=== PATIENT | female | born 1975 | race Caucasian/White ===

== ENCOUNTER 2018-10-24 17:42 | Emergency (ER) | payer OTHER ==
[2018-10-24 17:45] VITALS: BP 129/78; PULSE 71; TEMP 98; BMI 24.2
--- NOTE | 2018-10-24 17:56 | PDOC ---
History of Present Illness - General Chief Complaint: Pain, Acute Stated Complaint: NECK AND UPPER BACK PAIN Time Seen by Provider: 10/24/18 17:55 History Source: Patient Exam Limitations: No Limitations - History of Present Illness Initial Comments: 10/24/18 18:20 Pt is a 43yo F with PMH of cervical ca s/p chemotherapy 2 years ago, herniated disc repair presenting to ED with complaints of posterior headache with neck pain. Pain started yesterday evening. She denies injury or strenuous exercise. She took Advil, felt better. When she woke up this morning, the pain returned and was not getting relieved by Advil. Pain is mostly in the back of the head/ upper neck and goes down the neck to the shoulders bilaterally. Worse with rotating the neck. Assoicated with lightheadedness. She denies fever, chills, recent illnesses, injury, LOC, syncope, dizziness, n/v/d, abdominal pain, urinary symtpoms, weakness, numbness/tingling. LMP 2 years ago PMH: see hpi PSH: lumbar disc repair Meds: none Social: denies Allergies: nkda Past History - Past Medical History Allergies/Adverse Reactions: Allergies Allergy/AdvReac Type Severity Reaction Status Date / Time No Known Allergies Allergy Verified 10/24/18 17:42 Home Medications: Ambulatory Orders Ibuprofen [Advil -] 600 mg PO QID PRN 02/09/15 Anemia: No Asthma: No Cancer: No Cardiac Disorders: No CVA: No COPD: No CHF: No Dementia: No Diabetes: No GI Disorders: No Disorders: No HTN: No Hypercholesterolemia: No Liver Disease: No Seizures: No Thyroid Disease: No - Surgical History Abdominal Surgery: No Appendectomy: No Cardiac Surgery: No Cholecystectomy: No Lung Surgery: No Neurologic Surgery: No Orthopedic Surgery: Yes (Left Carpal Tunnel Release) - Suicide/Smoking/Psychosocial Hx Smoking History: Never smoked Have you smoked in the past 12 months: No Hx Alcohol Use: No Drug/Substance Use Hx: No Substance Use Type: None Hx Substance Use Treatment: No Review of Systems - Review of Systems Constitutional: No: Chills, Fever HEENTM: Yes: See HPI. No: Eye Pain, Blurred Vision, Recent change in vision, Tinnitus Respiratory: No: Cough, Shortness of Breath Cardiac (ROS): Yes: Lightheadedness. No: Chest Pain, Palpitations, Syncope ABD/GI: No: Constipated, Diarrhea, Nausea, Vomiting : No: Burning, Dysuria Musculoskeletal: Yes: See HPI, Neck Pain. No: Back Pain, Joint Pain, Joint Swelling, Muscle Pain, Muscle Weakness, Joint Stiffness Integumentary: No: Symptoms Reported Neurological: Yes: See HPI, Headache. No: Numbness, Paresthesia, Tingling, Tremors, Weakness, Ataxia *Physical Exam - Vital Signs Last Vital Signs Temp Pulse Resp BP Pulse Ox 98.0 F 71 16 129/78 100 10/24/18 17:42 10/24/18 17:42 10/24/18 17:42 10/24/18 17:42 10/24/18 17:42 - Physical Exam General Appearance: Yes: Nourished, Appropriately Dressed. No: Apparent Distress HEENT: positive: EOMI (illicited lightheadedness), YAHIR, TMs Normal, Hearing Grossly Normal. negative: Photophobia Neck: positive: Trachea midline, Supple. negative: Lymphadenopathy (R), Lymphadenopathy (L) Respiratory/Chest: positive: Lungs Clear, Normal Breath Sounds Cardiovascular: positive: Regular Rhythm, Regular Rate, S1, S2. negative: Edema , JVD, Murmur Vascular Pulses: Carotid (R): 2+, Carotid (L): 2+, Dorsalis-Pedis (R): 2+, Doralis-Pedis (L): 2+ Gastrointestinal/Abdominal: positive: Normal Bowel Sounds, Soft. negative: Distended, Guarding, Rebound, Tenderness Musculoskeletal: positive: Other (slight tenderness to palpation of paraspinal cervical muscles R side). negative: CVA Tenderness, Decreased Range of Motion, Vertebral Tenderness Extremity: positive: Normal Capillary Refill, Normal Range of Motion, Pelvis Stable. negative: Swelling, Calf Tenderness Integumentary: positive: Normal Color, Dry, Warm Neurologic: positive: glass inserter II-XII NML intact, Fully Oriented, Alert, Normal Mood/ Affect, Normal Response, Motor Strength 5/5, Finger to Nose. negative: Numbness , Sensory Deficit Moderate Sedation - Procedure Monitoring Vital Signs: Procedure Monitoring Vital Signs Temperature 98.0 F 10/24/18 17:42 Pulse Rate 71 10/24/18 17:42 Respiratory Rate 16 10/24/18 17:42 Blood Pressure 129/78 10/24/18 17:42 O2 Sat by Pulse Oximetry (%) 100 10/24/18 17:42 Medical Decision Making - Medical Decision Making 10/24/18 18:23 Pt is a 43yo F with PMH of cervical ca s/p chemotherapy 2 years ago, herniated disc repair presenting to ED with complaints of posterior headache with neck pain. Pain started yesterday evening. She denies injury or strenuous exercise. She took Advil, felt better. When she woke up this morning, the pain returned and was not getting relieved by Advil. Pain is mostly in the back of the head/ upper neck and goes down the neck to the shoulders bilaterally. Worse with rotating the neck. Assoicated with lightheadedness. She denies fever, chills, recent illnesses, injury, LOC, syncope, dizziness, n/v/d, abdominal pain, urinary symtpoms, weakness, numbness/tingling. LMP 2 years ago Vitals: wnl PE: parevertebral spinal tenderness with neck rotation greater on R side. No vertebral tenderness, lightheadedness illicited with EOM. No focal neurological deficits. Ddx: SAH, mass effect, pseudotumor cerebri, meningitis, fracture, intracranial hemorrhage, vertebral dissection. low suspicion for hemorrhage or dissection given that pt garvin normal vital signs, no focal neurological deficits, no history of injury, is not taking blood thinners. Will defer imaging at this time. -will give IM Toradol and reevaluate. 10/24/18 18:47 Pt states no improvement in pain. Will give Vailum 2mg and reevaluate. Pt signed out to Dr. Gonzalez. If she feels better, she can go home. is driving. *DC/Admit/Observation/Transfer Diagnosis at time of Disposition: Neck pain - Discharge Dispostion Disposition: HOME Condition at time of disposition: Improved Decision to Admit order: No - Referrals - Patient Instructions Printed Discharge Instructions: DI for Neck Pain Additional Instructions: You were seen here today for neck pain. It seems more like a muscle spasm. I suggest that you see your doctor for further management and evaluation of your symptoms. Please come back to the emergency room if neck pain gets worse, headache gets worse, you have changes in vision, you are unable to move your neck or head, you lose consciousness, you develop fever or if any new concerning symptom develops. Thank you - Post Discharge Activity
--- NOTE | 2018-10-24 18:01 | PDOC ---
Attending Attestation - HPI HPI: 10/24/18 18:23 The patient is a 43 year old female with a significant past medical history of cervical cancer here today for evaluation of neck pain. The patient reports that her neck pain began last night and has been getting worse, is most prominent in the back right of the neck, and is worse with motion. Patient states she took advil which helped at first but now does not. She notes an associated headache on the right side of her head and notes no previous episodes of this pain. Patient denies lightheadedness. Denies fever, chills. Denies chest pain, shortness of breath. Denies nausea, vomiting, diarrhea, abdominal pain. Denies lower extremity edema. Denies urinary symptoms. Denies neurologic symptoms. Allergies: NKA PCP: none reported - Physicial Exam PE: 10/24/18 18:23 NECK: +discomfort when moving right. +point tenderness to right paraspinal muscles. Normal ROM, supple, no lymphadenopathy, JVD, or masses NEUROLOGICAL: Cranial nerves II through XII grossly intact. Normal speech, normal gait
[2018-10-24] MEDS ORDERED: KETOROLAC TROMETHAMINE 30 MG/1 ML VIAL IM ONE (18:06)
[2018-10-24] MEDS ORDERED: KETOROLAC TROMETHAMINE 30 MG/1 ML VIAL ONE (18:11)
[2018-10-24] MEDS ORDERED: diazePAM 2 MG TABLET PO ONE (18:46)
[2018-10-24] MEDS ORDERED: diazePAM 2 MG TABLET ONE (18:48)
[2018-10-24] MEDS ORDERED: ACETAMINOPHEN 500 MG TABLET (FP) PO ONE (19:48)
[2018-10-24] MEDS ORDERED: diazePAM 5 MG TABLET PO ONE (19:48)
[2018-10-24] MEDS ORDERED: DEXAMETHASONE SOD PHOSPHATE 10 MG/1 ML VIAL IM ONE (19:49)
--- NOTE | 2018-10-24 19:50 | PDOC ---
*Physical Exam - Vital Signs Last Vital Signs Temp Pulse Resp BP Pulse Ox 98.0 F 71 16 129/78 100 10/24/18 17:42 10/24/18 17:42 10/24/18 17:42 10/24/18 17:42 10/24/18 17:42 ED Treatment Course - Medications Given in the ED: ED Medications Discontinued Medications Generic Name Dose Route Start Last Admin Trade Name Alta PRN Reason Stop Dose Admin Diazepam 2 mg 10/24/18 18:46 10/24/18 18:50 Valium - PO 10/24/18 18:47 2 mg ONCE ONE Administration Ketorolac Tromethamine 30 mg 10/24/18 18:06 10/24/18 18:14 Toradol Injection - IM 10/24/18 18:07 30 mg ONCE ONE Administration Progress Note - Progress Note Progress Note: Care of this patient was transferred to me from Dr. Mustafa and the EM resident at 1900 hrs. Patient is a 43-year-old female who comes in complaining of neck pain. Patient was given Toradol and the Valium. 19:50 Reevaluation patient said that her symptoms have not improved. Patient will be given some Tylenol, Decadron and more Valium. *DC/Admit/Observation/Transfer Diagnosis at time of Disposition: Neck pain - Discharge Dispostion Disposition: HOME Condition at time of disposition: Improved - Prescriptions Prescriptions: Methocarbamol 750 mg PO QID #28 tablet Naproxen [Naprosyn] 500 mg PO BID #20 tablet - Referrals - Patient Instructions Printed Discharge Instructions: DI for Neck Pain Additional Instructions: You were seen here today for neck pain. It seems more like a muscle spasm. For the spasm intake methocarbamol 1 tablet 4 times a day. It may make you drowsy. Irritation take naproxen 1 tablet twice a day with food don't take on an empty stomach. I suggest that you see your doctor for further management and evaluation of your symptoms. Call the orthopedist in the morning Dr. Kelly. and let them know you were in the ER and we referred you to them. Their phone number is [phone] Please come back to the emergency room if neck pain gets worse, headache gets worse, you have changes in vision, you are unable to move your neck or head, you lose consciousness, you develop fever or if any new concerning symptom develops. Thank you - Post Discharge Activity
[2018-10-24] MEDS ORDERED: ACETAMINOPHEN 500 MG TABLET (FP) ONE (19:51)
[2018-10-24] MEDS ORDERED: DEXAMETHASONE SOD PHOSPHATE 10 MG/1 ML VIAL ONE (19:51)
[2018-10-24] MEDS ORDERED: diazePAM 5 MG TABLET ONE (19:52)
== END 2018-10-24 21:27 | disposition home or self-care (01) ==
LOC: FER 17:42
PROC: 3E0233Z Introduction of Anti-inflammatory into Muscle, Percutaneous Approach (ICD-10-PCS; principal; 2018-10-24)
PROC: 3E023GC Introduction of Other Therapeutic Substance into Muscle, Percutaneous Approach (ICD-10-PCS; 2018-10-24)
DX: M54.2 Cervicalgia (principal); Z85.41 Personal history of malignant neoplasm of cervix uteri; Z92.21 Personal history of antineoplastic chemotherapy
CPT/HCPCS: 99282-25; J1100